=== PATIENT | female | born 1990 | race Caucasian/White ===

== ENCOUNTER 2017-01-11 14:58 | Emergency (ER) | payer OTHER, MEDICAID ==
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
[2017-01-11 17:47] VITALS: BP 112/52; PULSE 68; RESP 18; TEMP 98.4; O2SAT 96
== END 2017-01-11 17:45 | disposition home or self-care (01) ==
DX: S16.1XXA Strain of muscle, fascia and tendon at neck level, initial encounter (principal); V46.5XXA Car driver injured in collision with other nonmotor vehicle in traffic accident, initial encounter; Y92.410 Unspecified street and highway as the place of occurrence of the external cause; Y99.8 Other external cause status; Y93.89 Activity, other specified
CPT/HCPCS: L0172